=== PATIENT | female | born 1965 | race Caucasian/White ===

== ENCOUNTER 2017-11-03 21:18 | Observation (INO) | payer OTHER ==
[2017-11-03 21:39] LABS: ADD MAN DIFF? NO
[2017-11-03 21:42] LABS: BASO % 0 % (0-3); EOS % 1 % (0-3); HEMATOCRIT 52.3 % (36.0-47.0); HEMOGLOBIN 17.6 g/dL (12.0-15.5); LYMPH # 0.7 x10^3/uL (1.0-4.8); LYMPH % 13 % (24-48); MEAN CORPUSCULAR HEMOGLOBIN 34 pg (25-35); MEAN CORPUSCULAR HGB CONC 34 g/dL (31-37); MEAN CORPUSCULAR VOLUME 101 fL (79-100); MONO # 0.6 x10^3/uL (0.0-1.1); MONO % 10 % (0-9); NEUT # 4.3 x10^3uL (1.8-7.7); NEUT % 76 % (31-73); PLATELET COUNT 127 x10^3/uL (140-400); RED BLOOD COUNT 5.16 x10^6/uL (3.50-5.40); WHITE BLOOD COUNT 5.7 x10^3/uL (4.0-11.0)
[2017-11-03 21:54] LABS: ANION GAP 7 (6-14); BLOOD UREA NITROGEN 15 mg/dL (7-20); BUN/CREATININE RATIO 19 (6-20); CALCIUM 9.6 mg/dL (8.5-10.1); CARBON DIOXIDE 33 mmol/L (21-32); CHLORIDE 99 mmol/L (98-107); CREATININE 0.8 mg/dL (0.6-1.0); GLUCOSE 169 mg/dL (70-99); POTASSIUM 4.2 mmol/L (3.5-5.1); SODIUM 139 mmol/L (136-145)
[2017-11-03] MEDS: methylPREDNISolone SOD SUCC PF 125 MG/2 ML VIAL. IV (21:58)
[2017-11-03 21:59] LABS: ALBUMIN 3.8 g/dL (3.4-5.0); ALBUMIN/GLOBULIN RATIO 0.9 (1.0-1.7); ALK PHOS 107 U/L (46-116); ALT (SGPT) 51 U/L (14-59); AST (SGOT) 45 U/L (15-37); TOTAL BILIRUBIN 1.3 mg/dL (0.2-1.0); TOTAL PROTEIN 8.2 g/dL (6.4-8.2)
[2017-11-03] MEDS: IPRATRPIUM/ALBUTEROL 0.5/2.5MG 3 ML NEBU. NEB (22:01)
[2017-11-03 22:04] LABS: TROPONINI < 0.017 ng/mL (0.000-0.055)
[2017-11-03 22:05] LABS: NT-PRO BNP 120 pg/mL (0-124)
[2017-11-03] MEDS ORDERED: ACETAMINOPHEN 325 MG TABLET. PO (22:15)
[2017-11-03] MEDS ORDERED: ONDANSETRON PF 4 MG/2 ML VIAL. IV (22:15)
[2017-11-03] MEDS: FUROSEMIDE 40 MG/4 ML VIAL. IVP (22:35)
[2017-11-03 22:41] LABS: BASE EXCESS ABG 3 mmol/L (-3-3); HCO3 ABG 31 mmol/L (21-28); PO2 ABG 67 mmHg (75-108); SAT O2 ABG 93 % (92-99)
[2017-11-03 22:42] LABS: PCO2 ABG 56 mmHg (35-46); PH ABG 7.36 (7.35-7.45)
[2017-11-04] MEDS ORDERED: ALBUTEROL SULFATE 2.5 MG/3 ML NEBU. NEB ×2 (01:00→08:00)
[2017-11-04] MEDS: methylPREDNISolone SOD SUCC PF 125 MG/2 ML VIAL. IV ×3 (01:07→12:25)
[2017-11-04] MEDS: BUDESONIDE 0.5 MG/2 ML NEBU. NEB (07:42)
[2017-11-04] MEDS: IPRATRPIUM/ALBUTEROL 0.5/2.5MG 3 ML NEBU. NEB ×2 (07:42→11:28)
[2017-11-04 08:00] LABS: POC GLUCOSE 415 mg/dL (70-99)
[2017-11-04] MEDS: GLIMEPIRIDE 2 MG TABLET. PO (08:56)
[2017-11-04] MEDS: LOSARTAN POTASSIUM 50 MG TABLET. PO (08:56)
[2017-11-04] MEDS: hydroCHLOROthiazide 25 MG TABLET PO (08:56)
[2017-11-04] MEDS ORDERED: NON FORMULARY ITEM (Budesonide/Formoterol Fumarate (Symbicort 160-4.5 Mcg Inhaler) 2 PUFF) IH (09:00)
[2017-11-04] MEDS ORDERED: NON FORMULARY ITEM (Albuterol Sulfate (Ventolin Hfa Inhaler) 2 PUFF) INH (09:00)
[2017-11-04] MEDS ORDERED: DEXTROSE 50% 25 GM / 50ML DISP.SYRIN. IV (10:15)
[2017-11-04] MEDS: INSULIN LISPRO 300 UNITS/3 ML INSULN.PEN. SQ ×2 (10:24→12:36)
[2017-11-04 12:03] LABS: POC GLUCOSE 413 mg/dL (70-99)
== END 2017-11-04 12:45 | disposition home or self-care (01) ==
LOC: ER 21:18 → 5 NORTH 22:10
DX: J44.1 Chronic obstructive pulmonary disease with (acute) exacerbation (principal); E11.9 Type 2 diabetes mellitus without complications; I10 Essential (primary) hypertension; E03.9 Hypothyroidism, unspecified; F17.210 Nicotine dependence, cigarettes, uncomplicated; J96.11 Chronic respiratory failure with hypoxia; E66.01 Morbid (severe) obesity due to excess calories; F17.200 Nicotine dependence, unspecified, uncomplicated; Z82.5 Family history of asthma and other chronic lower respiratory diseases; Z83.3 Family history of diabetes mellitus; Z90.49 Acquired absence of other specified parts of digestive tract; Z99.81 Dependence on supplemental oxygen; Z93.3 Colostomy status
CPT/HCPCS: 36415; 36600; 71045; 80053; 82805; 82962; 83880; 84484; 85025; 93005; 94640; 96372; 96374; 96375; 96376; 99285-25; G0378; G0379; J1815; J1940; J2930; J7620; J7626

== ENCOUNTER 2019-06-01 22:54 | Inpatient (IN) | payer OTHER ==
[~2019-06-01] VITALS: Ht 165.1 cm; Wt 127.6 kg
[~2019-06-01 22:54] MED LIST: BUDE10.2 IH; CEFP100T PO; DAPA5TAB PO; GLIM2TAB3 PO; HYDR-2145 PO; HYDR-3164 PO; INSU100I11 SQ; INSU100I13 SQ; LEVO500T59 PO; LEVO50TA5 PO; LOSA-73 PO; Nicotine 21MG TD; PRED50TA PO; PROM25TA10 PO; TRAM50TA PO; VENTOLIN HFA18 GM INH
--- NOTE | 2019-06-01 23:18 | PHYS DOC ---
Past Medical History Past Medical History: COPD, Diabetes-Type II, Hypertension, Hypothyroid, Other Additional Past Medical Histor: cyst ruptured around colon, COLOSTOMY Past Surgical History: Appendectomy, Colectomy, , Other Additional Past Surgical Histo: fibroidectomy; hernia; colostomy Alcohol Use: None Drug Use: None Adult General Chief Complaint Chief Complaint: DYSPNEA/RESPIRATOY DISTRESS HPI HPI 53-year-old obese female presents to the emergency department via EMS with complaints of shortness of breath. Patient states her shortness of breath woke her from sleep, EMS upon arrival noted oxygen saturations 55% she was on 2 L nasal cannula at that time. Patient was provided with multiple treatments prior to her arrival. Upon arrival patient was taken off of BiPAP with oxygen saturations 85% on 6 L nasal cannula. She was subsequently placed back upon B iPAP and her sats are 95%. She does arouse to verbal stimuli is able to answer some questions. Patient describes chest pain. Further review is difficult given patient's medical condition Review of Systems Review of Systems Constitutional: Denies fever or chills [] Respiratory: + cough/SOB Cardiovascular: No additional information not addressed in HPI [] GI: Denies abdominal pain, nausea, vomiting, bloody stools or diarrhea [] Musculoskeletal: Denies back pain or joint pain [] Neurologic: Denies headache, focal weakness or sensory changes [] All other systems were reviewed and found to be within normal limits, except as documented in this note. Current Medications Current Medications Current Medications Medications (Trade) Dose Ordered Sig/Kris Start Time Stop Time Status Last Admin Dose Admin Methylprednisolone Sodium Succinate (SOLU-Medrol 125MG VIAL) 125 mg 1X ONCE 06/01/19 23:30 06/01/19 23:31 DC 06/01/19 23:49 125 MG Morphine Sulfate (Morphine Sulfate) 2 mg 1X ONCE 06/02/19 00:30 06/02/19 00:31 DC Allergies Allergies Allergies Coded Allergies Type Severity Reaction Last Updated Verified NSAIDS (Non-Steroidal Anti-Inflamma Allergy Intermediate 02/09/16 Yes aspirin Allergy Intermediate 02/09/16 Yes ibuprofen Allergy Intermediate 02/09/16 Yes egg Allergy Mild Nausea 02/09/16 Yes rice Allergy Mild Nausea and Vomiting 02/09/16 Yes levothyroxine sodium Adverse Reaction Mild HALLUCINATIONS 09/19/17 Yes Physical Exam Physical Exam Constitutional: Well developed, well nourished, resp distress, obese, Decreased LOC [] HENT: Normocephalic, atraumatic, bilateral external ears normal, oropharynx moist, no oral exudates, nose normal. [] Eyes: PERRLA, EOMI, conjunctiva normal, no discharge. [] Cardiovascular:Heart rate regular rhythm, no murmur [] Lungs & Thorax: decreased BS bilaterally Abdomen: Bowel sounds normal, soft, no tenderness, no masses, no pulsatile masses. [] Skin: Warm, dry, no erythema, no rash. [] Extremities: No tenderness, + edema. [] Neurologic: Alert and oriented X 3, no focal deficits noted. [] Psychologic: Affect normal, judgement normal, mood normal. [] Current Patient Data Vital Signs Vital Signs Date Time Temp Pulse Resp B/P (MAP) Pulse Ox O2 Delivery O2 Flow Rate FiO2 06/01/19 23:15 96 BiPAP/CPAP 06/01/19 22:55 97.6 88 36 177/88 (117) 97.6 Lab Values Laboratory Tests Test 06/01/19 23:09 06/01/19 23:19 06/01/19 23:36 06/01/19 23:38 O2 Saturation 95 % (92-99) Arterial Blood pH 7.27 (7.35-7.45) L Arterial Blood pCO2 at Patient Temp 76 mmHg (35-46) *H Arterial Blood pO2 at Patient Temp 80 mmHg (75-108) Arterial Blood HCO3 34 mmol/L (21-28) H Arterial Blood Base Excess 4 mmol/L (-3-3) H White Blood Count 4.7 x10^3/uL (4.0-11.0) Red Blood Count 4.99 x10^6/uL (3.50-5.40) Hemoglobin 16.9 g/dL (12.0-15.5) H Hematocrit 50.8 % (36.0-47.0) H Mean Corpuscular Volume 102 fL (79-100) H Mean Corpuscular Hemoglobin 34 pg (25-35) Mean Corpuscular Hemoglobin Concent 33 g/dL (31-37) Red Cell Distribution Width 15.4 % (11.5-14.5) H Platelet Count 113 x10^3/uL (140-400) L Neutrophils (%) (Auto) 73 % (31-73) Lymphocytes (%) (Auto) 10 % (24-48) L Monocytes (%) (Auto) 16 % (0-9) H Eosinophils (%) (Auto) 0 % (0-3) Basophils (%) (Auto) 1 % (0-3) Neutrophils # (Auto) 3.4 x10^3/uL (1.8-7.7) Lymphocytes # (Auto) 0.5 x10^3/uL (1.0-4.8) L Monocytes # (Auto) 0.8 x10^3/uL (0.0-1.1) Eosinophils # (Auto) 0.0 x10^3/uL (0.0-0.7) Basophils # (Auto) 0.0 x10^3/uL (0.0-0.2) D-Dimer (Eileen) 0.45 ug/mlFEU (0.00-0.50) Sodium Level 136 mmol/L (136-145) Potassium Level 4.5 mmol/L (3.5-5.1) Chloride Level 99 mmol/L (98-107) Carbon Dioxide Level 36 mmol/L (21-32) H Anion Gap 1 (6-14) L Blood Urea Nitrogen 20 mg/dL (7-20) Creatinine 0.9 mg/dL (0.6-1.0) Estimated GFR (Cockcroft-Gault) 65.0 BUN/Creatinine Ratio 22 (6-20) H Glucose Level 235 mg/dL (70-99) H Calcium Level 9.1 mg/dL (8.5-10.1) Total Bilirubin 0.8 mg/dL (0.2-1.0) Aspartate Amino Transferase (AST) 74 U/L (15-37) H Alanine Aminotransferase (ALT) 69 U/L (14-59) H Alkaline Phosphatase 200 U/L (46-116) H Troponin I Quantitative 0.025 ng/mL (0.000-0.055) DL-Bne-C-Type Natriuretic Peptide 1265 pg/mL (0-124) H Total Protein 8.1 g/dL (6.4-8.2) Albumin 3.6 g/dL (3.4-5.0) Albumin/Globulin Ratio 0.8 (1.0-1.7) L Urine Collection Type U cath Urine Color Milena Urine Clarity Clear Urine pH 5.5 Urine Specific [place] 1.025 Urine Protein >=300 mg/dL (NEG-TRACE) Urine Glucose (UA) Negative mg/dL (NEG) Urine Ketones (Stick) Negative mg/dL (NEG) Urine Blood Moderate (NEG) Urine Nitrite Negative (NEG) Urine Bilirubin Small (NEG) Urine Urobilinogen Dipstick 1.0 mg/dL (0.2 mg/dL) Urine Leukocyte Esterase Negative (NEG) Urine RBC 3-5 /HPF (0-2) Urine WBC 0 /HPF (0-4) Urine Squamous Epithelial Cells None /LPF Urine Amorphous Sediment Present /HPF Urine Bacteria 0 /HPF (0-FEW) Urine Hyaline Casts Moderate /HPF Urine Granular Casts Few /HPF Urine Mucus Mod /LPF Influenza Type A Antigen Negative (NEGATIVE) Influenza Type B Antigen Negative (NEGATIVE) Laboratory Tests 06/01/19 23:19 Laboratory Tests 06/01/19 23:19 EKG EKG [] Radiology/Procedures Radiology/Procedures [] Course & Med Decision Making Course & Med Decision Making Pertinent Labs and Imaging studies reviewed. (See chart for details) [] 53-year-old obese female presents to the emergency department via EMS with complaints of shortness of breath. Patient states her shortness of breath woke her from sleep, EMS upon arrival noted oxygen saturations 55% she was on 2 L nasal cannula at that time. Patient was provided with multiple treatments prior to her arrival. Upon arrival patient was taken off of BiPAP with oxygen saturations 85% on 6 L nasal cannula. She was subsequently placed back upon BiPAP and her sats are 95%. She does arouse to verbal stimuli is able to answer some questions. Patient describes chest pain. Further review is difficult given patient's medical condition Labs reviewed, ABG reveals pH 7.27, PCO2 76, PO2 80, bicarbonate 34 D-dimer within normal limits, troponin within normal limits, BNP 1265. Discussed admission with Dr. Almaguer Pulmonary consultation placed. Plan to continue BiPAP with transitioning to NC as able. Dragon Disclaimer Dragon Disclaimer This electronic medical record was generated, in whole or in part, using a voice recognition dictation system. Departure Departure Impression: Primary Impression: Acute hypercapnic respiratory failure Additional Impression: COPD exacerbation Disposition: ADMITTED INPATIENT Admitting Physician: Koduri, Vinaya Condition: IMPROVED Referrals: ALBA ALMAGUER MD (PCP) Critical Care Time Critical care time was 35 minutes exclusive of procedures. Problem Qualifiers SANYA GRADY MD Jun 01, 2019 23:17
[2019-06-01 23:21] LABS: BASE EXCESS ABG 4 mmol/L (-3-3); HCO3 ABG 34 mmol/L (21-28); PO2 ABG 80 mmHg (75-108); SAT O2 ABG 95 % (92-99)
[2019-06-01] MEDS ORDERED: methylPREDNISolone SOD SUCC PF 125 MG/2 ML VIAL. IV ONE (23:30)
[2019-06-01 23:38] LABS: PCO2 ABG 76 mmHg (35-46)
[2019-06-01 23:43] LABS: BASO % 1 % (0-3); EOS % 0 % (0-3); HEMATOCRIT 50.8 % (36.0-47.0); HEMOGLOBIN 16.9 g/dL (12.0-15.5); LYMPH # 0.5 x10^3/uL (1.0-4.8); LYMPH % 10 % (24-48); MEAN CORPUSCULAR HEMOGLOBIN 34 pg (25-35); MEAN CORPUSCULAR HGB CONC 33 g/dL (31-37); MEAN CORPUSCULAR VOLUME 102 fL (79-100); MONO # 0.8 x10^3/uL (0.0-1.1); MONO % 16 % (0-9); NEUT # 3.4 x10^3/uL (1.8-7.7); NEUT % 73 % (31-73); PLATELET COUNT 113 x10^3/uL (140-400); RED BLOOD COUNT 4.99 x10^6/uL (3.50-5.40); RED CELL DISTRIBUTION WIDTH 15.4 % (11.5-14.5); WHITE BLOOD COUNT 4.7 x10^3/uL (4.0-11.0)
[2019-06-01 23:44] LABS: BILIRUBIN,URINE SMALL (NEG); CLARITY,URINE CLEAR; COLOR,URINE AMBER; NITRITE,URINE NEGATIVE (NEG); PH,URINE 5.5; PROTEIN,URINE >=300 mg/dL (NEG-TRACE)
[2019-06-01 23:52] LABS: CALCIUM 9.1 mg/dL (8.5-10.1); CREATININE 0.9 mg/dL (0.6-1.0); POTASSIUM 4.5 mmol/L (3.5-5.1)
[2019-06-01 23:53] LABS: AMORPHOUS SEDIMENT,UR PRESENT /HPF; BACTERIA,URINE 0 /HPF (0-FEW); GRANULAR CASTS,URINE FEW /HPF; HYALINE CASTS, URINE MODERATE /HPF; WBC,URINE 0 /HPF (0-4)
[2019-06-01 23:57] LABS: ALBUMIN 3.6 g/dL (3.4-5.0); ALBUMIN/GLOBULIN RATIO 0.8 (1.0-1.7); TOTAL BILIRUBIN 0.8 mg/dL (0.2-1.0); TOTAL PROTEIN 8.1 g/dL (6.4-8.2)
[2019-06-02] VITALS (7 sets, daily range): BP systolic 105–174; BP diastolic 55–91
[2019-06-02 00:02] LABS: INFLUENZA A PATIENT NEGATIVE (NEGATIVE); INFLUENZA B PATIENT NEGATIVE (NEGATIVE)
[2019-06-02] MEDS ORDERED: MORPHINE SULFATE 2 MG/ML VIAL. IV ONE (00:30)
[2019-06-02] MEDS ORDERED: MORPHINE SULFATE 2 MG/ML VIAL. IV PRN (01:00)
[2019-06-02] MEDS ORDERED: FUROSEMIDE 40 MG/4 ML VIAL. IVP ONE (01:00)
[2019-06-02] MEDS ORDERED: ONDANSETRON PF 4 MG/2 ML VIAL. IV PRN (01:00)
[2019-06-02] MEDS ORDERED: PRED20TA PO (02:30)
[2019-06-02] MEDS ORDERED: FLUC200T4 PO (02:30)
[2019-06-02] MEDS ORDERED: ONDA8TAB9 PO (02:30)
[2019-06-02] MEDS ORDERED: ACYC400T PO (02:30)
[2019-06-02] MEDS ORDERED: TIZA4TAB2 PO (02:30)
[2019-06-02] MEDS ORDERED: GABA-585 PO (02:30)
[2019-06-02] MEDS ORDERED: HYDR-2759 PO (02:30)
[2019-06-02] MEDS ORDERED: PANT40TA6 PO (02:30)
[2019-06-02] MEDS ORDERED: GLIM2TAB3 PO (02:30)
--- NOTE | 2019-06-02 03:09 | RAD ---
EXAM: CHEST 1 VIEW History: Dyspnea COMPARISON: 11/07/2017 TECHNIQUE: Single portable radiograph of the chest FINDINGS: Mild cardiomegaly. Mild prominent bilateral interstitial markings likely congestive changes. Mild bibasilar lung airspace opacities likely atelectasis or infiltrates. IMPRESSION: Mild congestive changes. Mild bibasilar lung airspace opacities likely atelectasis or infiltrates. Electronically signed by: Leonides Rogers MD (06/02/2019 3:06 AM) [facility]
[2019-06-02] MEDS ORDERED: IPRATRPIUM/ALBUTEROL 0.5/2.5MG 3 ML NEBU. NEB ONE (04:45)
[2019-06-02] MEDS ORDERED: IPRATRPIUM/ALBUTEROL 0.5/2.5MG 3 ML NEBU. NEB SCH (08:00)
--- NOTE | 2019-06-02 08:09 | PDOC ---
Provider Note Provider Note [id number] acute resp fail copd w ae acute bronchitis ? chf bipap steroid abx DARIA PETER MD Jun 02, 2019 08:08
[2019-06-02] MEDS: PANTOPRAZOLE 40 MG TABLET.DR. PO SCH (08:15)
--- NOTE | 2019-06-02 08:30 | CONS ---
DATE OF CONSULTATION: 06/02/2019 I was asked to see this 53-year-old lady for acute on chronic respiratory failure, acute exacerbation of COPD. HISTORY OF PRESENT ILLNESS: She is on BiPAP, so it is difficult to obtain information. She continues to smoke. She has not felt well for the past few days. She was brought to the Emergency Room via EMS. She was found to be hypoxemic. She is on oxygen 2 liters per minute via nasal cannula. She has had increased cough, sputum production and wheezing. She has had lower extremity edema. She is currently on BiPAP. ALLERGIES: NSAIDS, ASPIRIN, IBUPROFEN, LEVOTHYROXINE AND SODIUM RICE. MEDICATIONS: She was given Solu-Medrol in the Emergency Room. She is on bronchodilator. PAST MEDICAL HISTORY: COPD, chronic respiratory failure, hypertension, diabetes mellitus, obesity, ? obstructive sleep apnea-hypopnea syndrome, when I ask her if she uses CPAP at home she says yes. SOCIAL HISTORY: She is a smoker, details are not known. FAMILY HISTORY: There is no history of lung disease. REVIEW OF SYSTEMS: As mentioned as above, other systems are otherwise negative. PHYSICAL EXAMINATION: GENERAL: This is a morbidly obese lady. VITAL SIGNS: Her O2 saturation on BiPAP is 96%, respiratory rate 24, heart rate 77, blood pressure 171/77 and temperature was 100.8 earlier this morning. HEENT: Normocephalic, atraumatic. Pupils are equal, round, reactive to light. She has BiPAP mask on. NECK: There is no lymphadenopathy or thyromegaly. CARDIOVASCULAR: Regular rate and rhythm. PMI is nondisplaced. CHEST: Inspection is normal. LUNGS: There is bilateral end-expiratory wheezing, bibasilar crackles, dullness at the bases. ABDOMEN: Obese. Bowel sounds are good. EXTREMITIES: There is edema. LYMPHATICS: There is no lymphadenopathy. NEUROLOGIC: She is alert. SKIN: Chronic changes. LABORATORY DATA: I reviewed the following lab data: Chest x-ray shows increased interstitial marking and prominent hilar shadows. WBC 4.7, hemoglobin 16.9 and platelets 113. ABG last night, pH 7.27, pCO2 76 and pO2 80. Influenza A and B negative. Sodium 136, potassium 4.5, chloride 99, CO2 36, BUN 20 and creatinine 0.9. Troponin 0.025. BNP 1265. IMPRESSION: 1. Acute on chronic respiratory failure secondary to acute exacerbation of chronic obstructive pulmonary disease, acute bronchitis, cannot rule out acute diastolic congestive heart failure versus others. 2. Abnormal chest x-ray. 3. Acute exacerbation of chronic obstructive pulmonary disease. 4. Acute bronchitis. 5. Morbid obesity, obstructive sleep apnea-hypopnea syndrome, obesity hypoventilation syndrome. 6. Hypertension. 7. Diabetes mellitus. PLAN AND RECOMMENDATIONS: 1. Titrate FiO2 to keep O2 saturation 91%. 2. Continue bronchodilator. 3. Continue BiPAP until respiratory status is more stable. BiPAP setting reviewed. 4. Agree with Lasix. 5. Agree with Levaquin. 6. Start Solu-Medrol 40 mg IV every 8 hours. 7. Start Lovenox for DVT prophylaxis, Protonix for stress ulcer prophylaxis. 8. Lower extremity venous Doppler. 9. I have advised her to stop smoking forever. 10. If she does not have a CPAP, she will require an outpatient sleep study. Thank you very much for allowing me to participate in care of this very nice lady. The findings and recommendations were discussed with the patient and RN. DARIA PETER M.D. : GILBERT/elena JOB#: [id number] / [id number]
--- NOTE | 2019-06-02 08:51 | RAD ---
Bilateral lower extremity venous ultrasound, : History: Lower extremity edema Sonographic evaluation including grayscale, color flow and spectral Doppler analysis of the deep veins of the lower extremities was performed. The femoral and popliteal veins demonstrate normal compressibility and normal responses to distal augmentation maneuvers. Color imaging of those vessels shows no evidence of intraluminal clot. The visualized deep veins in both calves are patent. IMPRESSION: There is no sonographic evidence of deep vein thrombosis in either lower extremity. Electronically signed by: Jaime Wellington MD (06/02/2019 8:47 AM) [facility]
[2019-06-02] MEDS ORDERED: ENOXAPARIN 40 MG/0.4 ML SYRINGE. SQ SCH ×2 (09:00→11:30)
[2019-06-02] MEDS: methylPREDNISolone SOD SUCC PF 40 MG/ML VIAL. IV SCH ×3 (09:15→22:25)
--- NOTE | 2019-06-02 10:11 | EKG ---
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
[2019-06-02] MEDS ORDERED: HYDROcodone/APAP 5/325MG 1 TAB TABLET PO PRN (11:30)
[2019-06-02] MEDS ORDERED: DEXTROSE 50% 25 GM / 50ML DISP.SYRIN. IV PRN (11:30)
[2019-06-02] MEDS ORDERED: ALBUTEROL SULFATE 2.5 MG/3 ML NEBU. NEB PRN (11:45)
[2019-06-02] MEDS ORDERED: ONDANSETRON ODT 4 MG TAB.RAPDIS. PO PRN (11:45)
[2019-06-02] MEDS: hydroCHLOROthiazide 25 MG TABLET PO SCH (12:00)
[2019-06-02] MEDS: GLIMEPIRIDE 2 MG TABLET. PO SCH ×2 (12:00→18:02)
[2019-06-02] MEDS ORDERED: INSULIN LISPRO 300 UNITS/3 ML VIAL. SQ SCH (12:00)
[2019-06-02] MEDS: ALBUTEROL SULFATE 2.5 MG/3 ML NEBU. NEB SCH ×3 (12:06→20:10)
[2019-06-02] MEDS: BUDESONIDE 0.5 MG/2 ML NEBU. NEB SCH ×2 (12:06→20:09)
--- NOTE | 2019-06-02 12:26 | PDOC ---
Provider Note Provider Note Pt seen .H&P dictated.#[id number]. ALBA LOMAS MD Jun 02, 2019 12:26
--- NOTE | 2019-06-02 12:44 | HP ---
ADMIT DATE: 06/02/2019 REASON FOR ADMISSION TO THE HOSPITAL: Acute hypercapnic respiratory failure. HISTORY OF PRESENT ILLNESS: The patient is a 53-year-old female patient known to me, has history of chronic COPD, diastolic heart failure, obstructive sleep apnea, morbid obesity, diabetes, noncompliant, she has been sick for the last 3 weeks, has not seen the doctor, coughing progressively worse, she came to the Emergency Room wheezing. She has CO2 retention with hypercapnic respiratory failure, was placed on BiPAP, was given oxygen, breathing treatments and Solu-Medrol, antibiotics, did not improve, was admitted to the hospital. Pulmonary was consulted. PAST MEDICAL HISTORY: She has a history of chronic COPD, diastolic heart failure, obstructive sleep apnea, morbid obesity, diabetes, hypothyroidism, anxiety, depression. PAST SURGICAL HISTORY: Ruptured diverticulosis, had a colostomy, appendectomy, , hernia surgery. ALLERGIES: NONSTEROIDALS, ASPIRIN, EGG, IBUPROFEN, LEVOTHYROXINE, SODIUM RICE. SHE SAYS SHE CANNOT TAKE FLU OR PNEUMONIA SHOTS, SO WAS NOT GETTING THOSE. PERSONAL HISTORY: Smokes 1 pack to 2 packs for last 30 years. Denies alcohol. Denies any street drugs. FAMILY HISTORY: Positive for diabetes and lung problems. REVIEW OF SYMPTOMS: Complains of cough, wheezing and significant other. States she has been confused lately. PHYSICAL EXAMINATION: GENERAL: The patient is obese, BMI of 47, not in poor hygiene and she is on BiPAP, sitting in the bed at this present time. Significant other is present in the room. HEENT: Head is atraumatic. Pupils equal. Oral cavity: No teeth. The patient has a short neck and central obesity. CARDIOVASCULAR: S1, S2. LUNGS: Bilateral wheezing. ABDOMEN: The patient had a surgery in the abdomen. Has a large hernia and the left lower abdomen has a colostomy bag. EXTERNAL GENITALIA: [place]. RECTAL: Deferred. EXTREMITIES: A 1+ edema, lower extremities, pulses thready. NEUROLOGIC: Moving all extremities. No focal deficits noted. The patient recognized my name, says Tripp. She does not remember she is in the hospital. She is in and out on the conversation. LABORATORY DATA: Shows a white count 4.7, hemoglobin 17, platelets 113. Electrolytes show sodium 136, potassium 4.5, chloride 99, bicarbonate 36, BUN 20, creatinine 0.9, glucose 235. LFTs: AST 74, ALT 69, alk phos 200. BNP 1265. Troponin 0.025. Albumin negative. Urine shows protein 300, leukocytes negative, 0 white cells. Influenza A and B was negative. Ultrasound of the lower extremities negative for DVT. Chest x-ray shows congestive heart failure changes, bibasilar airspace opacities. FINAL IMPRESSION: 1. Acute hypercapnic acute respiratory failure, requiring BiPAP. 2. CO2 retention with hypoxia. 3. Chronic obstructive pulmonary disease with acute exacerbation. 4. History of sleep apnea. 5. Morbid obesity. 6. Diabetes. 7. Hypertension. 8. Hyperlipidemia. 9. History of colostomy. 10. Smoking addiction. 11. ALLERGIES TO EGG, COULD NOT TAKE FLU AND PNEUMONIA SHOTS. PLAN: At this time, admit to hospital, was given IV Solu-Medrol 125, then 40. She was placed on BiPAP, IV antibiotics, Levaquin after sputum cultures and blood cultures and DuoNeb 4 times daily. DVT prevention and see how the patient's condition improves in the next 24-48 hours. Smoking counseling was done. ALBA LOMAS MD DR: LUIS MIGUEL/elena JOB#: [id number] / [id number]
[2019-06-02] MEDS: INSULIN LISPRO 300 UNITS/3 ML VIAL. SQ SCH ×2 (13:49→18:12)
[2019-06-02] MEDS: tiZANidine 4 MG TABLET. PO SCH ×2 (15:12→22:24)
[2019-06-02] MEDS: LOSARTAN POTASSIUM 50 MG TABLET. PO SCH (15:12)
[2019-06-02] MEDS: GABAPENTIN 100 MG CAPSULE. PO SCH ×2 (15:12→22:24)
[2019-06-02] MEDS: FLUCONAZOLE 100 MG TABLET. PO SCH (15:12)
[2019-06-02] MEDS ORDERED: NON FORMULARY ITEM (Budesonide/Formoterol Fumarate (Symbicort 160-4.5 Mcg Inhaler) 2 PUFF) IH SCH (21:00)
[2019-06-02] MEDS: LACTOBACILLUS RHAMNOSUS GG 1 CAPSULE. PO SCH (22:24)
[2019-06-02] MEDS: INSULIN GLARGINE SYRINGE. SQ SCH (22:40)
[2019-06-03 03:00] VITALS: BP 116/61
[2019-06-03] MEDS: methylPREDNISolone SOD SUCC PF 40 MG/ML VIAL. IV SCH ×2 (06:19→21:05)
[2019-06-03 07:00] VITALS: BP 116/56
[2019-06-03] MEDS: ALBUTEROL SULFATE 2.5 MG/3 ML NEBU. NEB SCH ×4 (07:37→20:48)
[2019-06-03] MEDS: BUDESONIDE 0.5 MG/2 ML NEBU. NEB SCH ×2 (07:37→20:48)
--- NOTE | 2019-06-03 07:47 | PDOC ---
PULMONARY PROGRESS NOTES Subjective on bipap, more alert, has cough, sob better Vitals Vital Signs Date Time Temp Pulse Resp B/P (MAP) Pulse Ox O2 Delivery O2 Flow Rate FiO2 06/03/19 07:38 96 BiPAP/CPAP 06/03/19 03:00 98.1 58 20 116/61 (79) 98.1 General: Alert, No acute distress Lungs: Crackles Cardiovascular: S1, S2 Abdomen: Soft, Non-tender, Other Extremities: Other (edema) Skin: Warm Labs Laboratory Tests Test 06/01/19 23:09 06/01/19 23:19 06/01/19 23:36 06/01/19 23:38 O2 Saturation 95 % (92-99) Arterial Blood pH 7.27 (7.35-7.45) Arterial Blood pCO2 at Patient Temp 76 mmHg (35-46) Arterial Blood pO2 at Patient Temp 80 mmHg (75-108) Arterial Blood HCO3 34 mmol/L (21-28) Arterial Blood Base Excess 4 mmol/L (-3-3) White Blood Count 4.7 x10^3/uL (4.0-11.0) Red Blood Count 4.99 x10^6/uL (3.50-5.40) Hemoglobin 16.9 g/dL (12.0-15.5) Hematocrit 50.8 % (36.0-47.0) Mean Corpuscular Volume 102 fL (79-100) Mean Corpuscular Hemoglobin 34 pg (25-35) Mean Corpuscular Hemoglobin Concent 33 g/dL (31-37) Red Cell Distribution Width 15.4 % (11.5-14.5) Platelet Count 113 x10^3/uL (140-400) Neutrophils (%) (Auto) 73 % (31-73) Lymphocytes (%) (Auto) 10 % (24-48) Monocytes (%) (Auto) 16 % (0-9) Eosinophils (%) (Auto) 0 % (0-3) Basophils (%) (Auto) 1 % (0-3) Neutrophils # (Auto) 3.4 x10^3/uL (1.8-7.7) Lymphocytes # (Auto) 0.5 x10^3/uL (1.0-4.8) Monocytes # (Auto) 0.8 x10^3/uL (0.0-1.1) Eosinophils # (Auto) 0.0 x10^3/uL (0.0-0.7) Basophils # (Auto) 0.0 x10^3/uL (0.0-0.2) D-Dimer (Eileen) 0.45 ug/mlFEU (0.00-0.50) Sodium Level 136 mmol/L (136-145) Potassium Level 4.5 mmol/L (3.5-5.1) Chloride Level 99 mmol/L (98-107) Carbon Dioxide Level 36 mmol/L (21-32) Anion Gap 1 (6-14) Blood Urea Nitrogen 20 mg/dL (7-20) Creatinine 0.9 mg/dL (0.6-1.0) Estimated GFR (Cockcroft-Gault) 65.0 BUN/Creatinine Ratio 22 (6-20) Glucose Level 235 mg/dL (70-99) Calcium Level 9.1 mg/dL (8.5-10.1) Total Bilirubin 0.8 mg/dL (0.2-1.0) Aspartate Amino Transf (AST/SGOT) 74 U/L (15-37) Alanine Aminotransferase (ALT/SGPT) 69 U/L (14-59) Alkaline Phosphatase 200 U/L (46-116) Troponin I Quantitative 0.025 ng/mL (0.000-0.055) XE-Fbw-M-Type Natriuretic Peptide 1265 pg/mL (0-124) Total Protein 8.1 g/dL (6.4-8.2) Albumin 3.6 g/dL (3.4-5.0) Albumin/Globulin Ratio 0.8 (1.0-1.7) Urine Collection Type U cath Urine Color Milena Urine Clarity Clear Urine pH 5.5 Urine Specific [place] 1.025 Urine Protein >=300 mg/dL (NEG-TRACE) Urine Glucose (UA) Negative mg/dL (NEG) Urine Ketones (Stick) Negative mg/dL (NEG) Urine Blood Moderate (NEG) Urine Nitrite Negative (NEG) Urine Bilirubin Small (NEG) Urine Urobilinogen Dipstick 1.0 mg/dL (0.2 mg/dL) Urine Leukocyte Esterase Negative (NEG) Urine RBC 3-5 /HPF (0-2) Urine WBC 0 /HPF (0-4) Urine Squamous Epithelial Cells None /LPF Urine Amorphous Sediment Present /HPF Urine Bacteria 0 /HPF (0-FEW) Urine Hyaline Casts Moderate /HPF Urine Granular Casts Few /HPF Urine Mucus Mod /LPF Influenza Type A Antigen Negative (NEGATIVE) Influenza Type B Antigen Negative (NEGATIVE) Test 06/02/19 12:38 06/02/19 16:39 06/02/19 20:56 Glucose (Fingerstick) 282 mg/dL (70-99) 291 mg/dL (70-99) 261 mg/dL (70-99) Laboratory Tests Test 06/02/19 12:38 06/02/19 16:39 06/02/19 20:56 Glucose (Fingerstick) 282 mg/dL (70-99) 291 mg/dL (70-99) 261 mg/dL (70-99) Medications Active Scripts Medications Dose Route/Sig Max Daily Dose Days Date Category Gabapentin (Gabapentin) 100 Mg Capsule 100 Mg PO TID 06/02/19 Reported Acyclovir 400 Mg Tablet 1 Tab PO BID 06/02/19 Reported Prednisone 20 Mg Tablet 1 Tab PO DAILY 06/02/19 Reported Hydrocodone-Acetamin 5-325 mg (Hydrocodone/Acetaminophen) 1 Each Tablet 1 Each PO PRN Q6HRS PRN 06/02/19 Reported Fluconazole 200 Mg Tablet 1 Tab PO DAILY 06/02/19 Reported Glimepiride 2 Mg Tablet 1 Tab PO DAILY 06/02/19 Reported Pantoprazole Sodium 40 Mg Tablet.dr 40 Mg PO DAILY 06/02/19 Reported Zofran (Ondansetron Hcl) 8 Mg Tablet 1 Tab PO Q8HRS PRN 06/02/19 Reported Tizanidine Hcl 4 Mg Tablet 1 Tab PO BID 06/02/19 Reported Humalog (Insulin Lispro) 100 Unit/1 Ml Insuln.pen 0 Units SQ TIDWMEALS 30 11/10/17 Rx Lantus Solostar (Insulin Glargine,Hum.rec.anlog) 100 Unit/1 Ml Insuln.pen 10 Units SQ QHS 30 11/10/17 Rx Levaquin (Levofloxacin) 500 Mg Tablet 500 Mg PO QHS 4 11/10/17 Rx Prednisone 50 Mg Tablet 1 Tab PO DAILY 7 11/10/17 Rx Losartan Potassium 50 Mg Tablet 50 Mg PO DAILY 12/30/15 Reported Hydrochlorothiazide Tablet (Hydrochlorothiazide) 25 Mg Tablet 25 Mg PO DAILY 12/30/15 Reported Farxiga (Dapagliflozin Propanediol) 5 Mg Tablet 5 Mg PO 12/30/15 Reported Ventolin Hfa Inhaler (Albuterol Sulfate) 18 Gm Hfa.aer.ad 2 Puff INH QID 02/17/15 Reported Symbicort 160-4.5 Mcg Inhaler (Budesonide/Formoterol Fumarate) 10.2 Gm Hfa.aer.ad 2 Puff IH BID 02/17/15 Reported Glimepiride 2 Mg Tablet 1 Tab PO BID 02/17/15 Reported Impression . IMPRESSION: 1. Acute on chronic respiratory failure secondary to acute exacerbation of chronic obstructive pulmonary disease, acute bronchitis, acute diastolic congestive heart failure 2. Abnormal chest x-ray. 3. Acute exacerbation of chronic obstructive pulmonary disease. 4. Acute bronchitis. 5. Morbid obesity, obstructive sleep apnea-hypopnea syndrome, obesity hypoventilation syndrome. 6. Hypertension. 7. Diabetes mellitus. Plan . PLAN AND RECOMMENDATIONS: 1. Titrate FiO2 to keep O2 saturation 90%. 2. Continue bronchodilator. 3. Continue BiPAP. BiPAP setting reviewed. will do abg, abg reviewed, improved, bipap prn during day, cont at night 4. cont Lasix. monitor k, cr 5. cont Levaquin. 6. change Solu-Medrol to 40 mg IV every 12 hours. 7. cont Lovenox for DVT prophylaxis, Protonix for stress ulcer prophylaxis. 8. Lower extremity venous Doppler, neg. 9. I have advised her to stop smoking forever. 10. I do recommend an outpatient sleep study. discussed w pt and rn and rt DARIA PETER MD Jun 03, 2019 07:47
[2019-06-03] MEDS: hydroCHLOROthiazide 25 MG TABLET PO SCH (08:27)
[2019-06-03] MEDS: LOSARTAN POTASSIUM 50 MG TABLET. PO SCH (08:28)
[2019-06-03] MEDS: GABAPENTIN 100 MG CAPSULE. PO SCH ×3 (08:28→21:05)
[2019-06-03] MEDS: tiZANidine 4 MG TABLET. PO SCH ×2 (08:28→21:05)
[2019-06-03] MEDS: LACTOBACILLUS RHAMNOSUS GG 1 CAPSULE. PO SCH ×2 (08:28→21:05)
[2019-06-03] MEDS: FLUCONAZOLE 100 MG TABLET. PO SCH (08:28)
[2019-06-03] MEDS: GLIMEPIRIDE 2 MG TABLET. PO SCH ×2 (08:28→17:31)
[2019-06-03] MEDS: PANTOPRAZOLE 40 MG TABLET.DR. PO SCH (08:28)
[2019-06-03] MEDS: ENOXAPARIN 40 MG/0.4 ML SYRINGE. SQ SCH ×2 (08:29→21:05)
[2019-06-03] MEDS: INSULIN LISPRO 300 UNITS/3 ML VIAL. SQ SCH ×3 (08:29→17:34)
[2019-06-03 08:46] LABS: BASE EXCESS ABG 9 mmol/L (-3-3); HCO3 ABG 39 mmol/L (21-28); PO2 ABG 68 mmHg (75-108); SAT O2 ABG 92 % (92-99)
[2019-06-03 08:51] LABS: FIO2 ABG 40; PCO2 ABG 81 mmHg (35-46)
[2019-06-03] MEDS ORDERED: PANTOPRAZOLE 40 MG TABLET.DR. PO SCH (09:00)
[2019-06-03 09:07] LABS: BASO % 0 % (0-3); EOS % 0 % (0-3); HEMATOCRIT 51.2 % (36.0-47.0); HEMOGLOBIN 16.8 g/dL (12.0-15.5); LYMPH # 0.5 x10^3/uL (1.0-4.8); LYMPH % 8 % (24-48); MEAN CORPUSCULAR HEMOGLOBIN 34 pg (25-35); MEAN CORPUSCULAR HGB CONC 33 g/dL (31-37); MEAN CORPUSCULAR VOLUME 102 fL (79-100); MONO # 0.4 x10^3/uL (0.0-1.1); MONO % 6 % (0-9); NEUT # 5.3 x10^3/uL (1.8-7.7); NEUT % 86 % (31-73); PLATELET COUNT 114 x10^3/uL (140-400); RED BLOOD COUNT 5.01 x10^6/uL (3.50-5.40); RED CELL DISTRIBUTION WIDTH 15.6 % (11.5-14.5); WHITE BLOOD COUNT 6.2 x10^3/uL (4.0-11.0)
[2019-06-03 09:34] LABS: ALBUMIN/GLOBULIN RATIO 0.7 (1.0-1.7); CALCIUM 8.8 mg/dL (8.5-10.1); CREATININE 1.2 mg/dL (0.6-1.0); GFR 46.6; TOTAL BILIRUBIN 0.6 mg/dL (0.2-1.0); TOTAL PROTEIN 7.4 g/dL (6.4-8.2)
[2019-06-03 09:35] LABS: POTASSIUM 4.8 mmol/L (3.5-5.1)
[2019-06-03 10:26] VITALS: BP 105/56
--- NOTE | 2019-06-03 12:16 | PDOC ---
PROGRESS NOTES Subjective Subjective less confused today Objective Objective Vital Signs Date Time Temp Pulse Resp B/P (MAP) Pulse Ox O2 Delivery O2 Flow Rate FiO2 06/03/19 11:26 89 Nasal Cannula 5.0 06/03/19 10:26 97.3 53 20 105/56 (72) 97.3 Intake and Output 06/03/19 07:00 Intake Total 470 ml Output Total 1225 ml Balance -755 ml Intake Oral 470 ml Output Urine Total 1225 ml Physical Exam Abdomen: Normal bowel sounds, Soft, Other (colostomy bag) Extremities: No clubbing General: Alert HEENT: Atraumatic Lungs: Other (wheezing ashley) MUSCULOSKELETAL: No deformity Neck: Supple Neuro: Normal speech Psych/Mental Status: Mental status NL Skin: No rashes COMMENT albert Diagnosis Problem List Problems Medical Problems: (1) Acute hypercapnic respiratory failure Status: Acute (2) COPD exacerbation Status: Acute FINAL IMPRESSION: 1. Acute hypercapnic acute respiratory failure, requiring BiPAP. 2. CO2 retention with hypoxia. 3. Chronic obstructive pulmonary disease with acute exacerbation. 4. History of sleep apnea. 5. Morbid obesity. 6. Diabetes. 7. Hypertension. 8. Hyperlipidemia. 9. History of colostomy. 10. Smoking addiction. 11. ALLERGIES TO EGG, COULD NOT TAKE FLU AND PNEUMONIA SHOTS. PLAN: iv antibiotics ic steroids off bipap on oxygen nasal canula. d/c albert. cxr ,echo in am At this time, admit to hospital, was given IV Solu-Medrol 125, then 40. She was placed on BiPAP, IV antibiotics, Levaquin after sputum cultures and blood cultures and DuoNeb 4 times daily. DVT prevention and see how the patient's condition improves in the next 24-48 hours. Smoking counseling was done. Assessment Assessment Problems Medical Problems: (1) Acute hypercapnic respiratory failure Status: Acute (2) COPD exacerbation Status: Acute Plan Plan of Care Problems Medical Problems: (1) Acute hypercapnic respiratory failure Status: Acute (2) COPD exacerbation Status: Acute Comment Review of Relevant I have reviewed the following items leonardo (where applicable) has been applied. Labs Laboratory Tests Test 06/02/19 12:38 06/02/19 16:39 06/02/19 20:56 06/03/19 07:37 Glucose (Fingerstick) 282 mg/dL (70-99) 291 mg/dL (70-99) 261 mg/dL (70-99) 226 mg/dL (70-99) Test 06/03/19 08:35 06/03/19 08:45 06/03/19 11:31 O2 Saturation 92 % (92-99) Arterial Blood pH 7.30 (7.35-7.45) Arterial Blood pCO2 at Patient Temp 81 mmHg (35-46) Arterial Blood pO2 at Patient Temp 68 mmHg (75-108) Arterial Blood HCO3 39 mmol/L (21-28) Arterial Blood Base Excess 9 mmol/L (-3-3) FiO2 40 White Blood Count 6.2 x10^3/uL (4.0-11.0) Red Blood Count 5.01 x10^6/uL (3.50-5.40) Hemoglobin 16.8 g/dL (12.0-15.5) Hematocrit 51.2 % (36.0-47.0) Mean Corpuscular Volume 102 fL (79-100) Mean Corpuscular Hemoglobin 34 pg (25-35) Mean Corpuscular Hemoglobin Concent 33 g/dL (31-37) Red Cell Distribution Width 15.6 % (11.5-14.5) Platelet Count 114 x10^3/uL (140-400) Neutrophils (%) (Auto) 86 % (31-73) Lymphocytes (%) (Auto) 8 % (24-48) Monocytes (%) (Auto) 6 % (0-9) Eosinophils (%) (Auto) 0 % (0-3) Basophils (%) (Auto) 0 % (0-3) Neutrophils # (Auto) 5.3 x10^3/uL (1.8-7.7) Lymphocytes # (Auto) 0.5 x10^3/uL (1.0-4.8) Monocytes # (Auto) 0.4 x10^3/uL (0.0-1.1) Eosinophils # (Auto) 0.0 x10^3/uL (0.0-0.7) Basophils # (Auto) 0.0 x10^3/uL (0.0-0.2) Sodium Level 139 mmol/L (136-145) Potassium Level 4.8 mmol/L (3.5-5.1) Chloride Level 98 mmol/L (98-107) Carbon Dioxide Level 37 mmol/L (21-32) Anion Gap 4 (6-14) Blood Urea Nitrogen 40 mg/dL (7-20) Creatinine 1.2 mg/dL (0.6-1.0) Estimated GFR (Cockcroft-Gault) 46.6 BUN/Creatinine Ratio 33 (6-20) Glucose Level 260 mg/dL (70-99) Calcium Level 8.8 mg/dL (8.5-10.1) Total Bilirubin 0.6 mg/dL (0.2-1.0) Aspartate Amino Transf (AST/SGOT) 68 U/L (15-37) Alanine Aminotransferase (ALT/SGPT) 66 U/L (14-59) Alkaline Phosphatase 163 U/L (46-116) Total Protein 7.4 g/dL (6.4-8.2) Albumin 3.0 g/dL (3.4-5.0) Albumin/Globulin Ratio 0.7 (1.0-1.7) Glucose (Fingerstick) 272 mg/dL (70-99) Medications Current Medications Enoxaparin Sodium (Lovenox 40mg Syringe) 40 mg Q12HR SQ Last administered on 06/03/19 08:29; Start 06/03/19 at 09:00 Gabapentin (Neurontin) 100 mg TID PO Last administered on 06/03/19 08:28; Start 06/02/19 at 14:00 Insulin Glargine (Lantus Syringe) 10 unit QHS SQ Last administered on 06/02/19at 22:40; Start 06/02/19 at 21:00 Lactobacillus Rhamnosus (Culturelle) 1 cap BID PO Last administered on 06/03/19 08:28; Start 06/02/19 at 21:00 Levofloxacin (Levaquin) 500 mg QHS PO ; Start 06/02/19 at 21:00; Stop 06/02/19 at 11:36; Status DC Levofloxacin/ Dextrose 100 ml @ 100 mls/hr Q24H IV Last administered on at 22:29; Start 06/02/19 at 21:00 Methylprednisolone Sodium Succinate (SOLU-Medrol 40MG VIAL) 40 mg Q12HR IV ; Start 06/03/19 at 21:00 Non-Formulary Medication (Budesonide/ Formoterol Fumarate (Symbicort 160-4.5 Mcg Inhaler)) 2 puff BID IH ; Start 06/02/19 at 21:00; Status UNV Pantoprazole Sodium (Protonix) 40 mg DAILY PO ; Start 06/03/19 at 09:00; Stop 06/02/19 at 11:36; Status DC Vitals/I & O Vital Sign - Last 24 Hours 06/02/19 06/02/19 06/02/19 06/02/19 13:17 14:15 15:12 16:12 Temp 97.4 97.4 Pulse 79 79 Resp 24 B/P (MAP) 130/67 (88) 130/67 Pulse Ox 96 O2 Delivery BiPAP/CPAP BiPAP/CPAP BiPAP/CPAP 06/02/19 06/02/19 06/02/19 06/02/19 17:54 19:35 20:00 20:11 Temp 98.0 98.0 Pulse 61 Resp 24 B/P (MAP) 113/59 (77) Pulse Ox 91 92 O2 Delivery BiPAP/CPAP BiPAP/CPAP Bi-pap BiPAP/CPAP 06/02/19 06/02/19 06/03/19 06/03/19 22:51 23:49 00:19 03:00 Temp 97.2 98.1 97.2 98.1 Pulse 57 58 Resp 23 20 B/P (MAP) 105/55 (72) 116/61 (79) Pulse Ox 93 94 97 O2 Delivery BiPAP/CPAP BiPAP/CPAP BiPAP/CPAP BiPAP/CPAP 06/03/19 06/03/19 06/03/19 06/03/19 07:00 07:38 08:20 08:28 Temp 97.3 97.3 Pulse 47 47 Resp 20 B/P (MAP) 116/56 (76) 116/56 Pulse Ox 92 96 O2 Delivery BiPAP/CPAP BiPAP/CPAP Bi-pap 06/03/19 06/03/19 10:26 11:26 Temp 97.3 97.3 Pulse 53 Resp 20 B/P (MAP) 105/56 (72) Pulse Ox 93 89 O2 Delivery BiPAP/CPAP Nasal Cannula O2 Flow Rate 5.0 Intake and Output 06/02/19 06/02/19 06/03/19 15:00 23:00 07:00 Intake Total 120 ml 350 ml Output Total 800 ml 425 ml Balance -680 ml -75 ml ALBA LOMAS MD Jun 03, 2019 12:16
[2019-06-03 14:12] VITALS: BP 109/55
[2019-06-03 19:35] VITALS: BP 127/60
[2019-06-03] MEDS: INSULIN GLARGINE SYRINGE. SQ SCH (21:15)
[2019-06-03 23:10] VITALS: BP 108/57
[2019-06-04 03:40] VITALS: BP 106/53
[2019-06-04 05:55] LABS: CALCIUM 8.6 mg/dL (8.5-10.1); CHOLESTEROL/HDL RATIO 4.9; CREATININE 0.9 mg/dL (0.6-1.0); POTASSIUM 4.5 mmol/L (3.5-5.1)
[2019-06-04 07:07] VITALS: BP 126/67
[2019-06-04] MEDS: ALBUTEROL SULFATE 2.5 MG/3 ML NEBU. NEB SCH ×4 (08:18→19:53)
[2019-06-04] MEDS: BUDESONIDE 0.5 MG/2 ML NEBU. NEB SCH ×2 (08:18→19:53)
[2019-06-04] MEDS: FLUCONAZOLE 100 MG TABLET. PO SCH (08:23)
[2019-06-04] MEDS: GABAPENTIN 100 MG CAPSULE. PO SCH ×3 (08:23→20:56)
[2019-06-04] MEDS: LACTOBACILLUS RHAMNOSUS GG 1 CAPSULE. PO SCH ×2 (08:23→20:56)
[2019-06-04] MEDS: tiZANidine 4 MG TABLET. PO SCH ×2 (08:23→20:56)
[2019-06-04] MEDS: PANTOPRAZOLE 40 MG TABLET.DR. PO SCH (08:23)
[2019-06-04] MEDS: GLIMEPIRIDE 2 MG TABLET. PO SCH ×2 (08:24→17:34)
[2019-06-04] MEDS: hydroCHLOROthiazide 25 MG TABLET PO SCH (08:24)
[2019-06-04] MEDS: LOSARTAN POTASSIUM 50 MG TABLET. PO SCH (08:24)
[2019-06-04] MEDS: methylPREDNISolone SOD SUCC PF 40 MG/ML VIAL. IV SCH ×2 (08:26→20:56)
[2019-06-04] MEDS: ENOXAPARIN 40 MG/0.4 ML SYRINGE. SQ SCH ×2 (08:30→20:55)
--- NOTE | 2019-06-04 08:33 | PDOC ---
PULMONARY PROGRESS NOTES Subjective STILL SOA CAN NOT TOLERATE THE BIPAP SEC TO SINUS H/A Vitals Vital Signs Date Time Temp Pulse Resp B/P (MAP) Pulse Ox O2 Delivery O2 Flow Rate FiO2 06/04/19 08:18 95 Nasal Cannula 6.0 06/04/19 07:07 98.2 55 22 126/67 (86) 98.2 ROS: No Nausea, No Chest Pain, No Abdominal Pain, No Increase Cough General: Alert, No acute distress Lungs: Crackles Cardiovascular: S1, S2 Abdomen: Soft, Non-tender, Other Extremities: Other (edema) Skin: Warm Labs Laboratory Tests Test 06/02/19 12:38 06/02/19 16:39 06/02/19 20:56 06/03/19 07:37 Glucose (Fingerstick) 282 mg/dL (70-99) 291 mg/dL (70-99) 261 mg/dL (70-99) 226 mg/dL (70-99) Test 06/03/19 08:35 06/03/19 08:45 06/03/19 11:31 06/03/19 17:00 O2 Saturation 92 % (92-99) Arterial Blood pH 7.30 (7.35-7.45) Arterial Blood pCO2 at Patient Temp 81 mmHg (35-46) Arterial Blood pO2 at Patient Temp 68 mmHg (75-108) Arterial Blood HCO3 39 mmol/L (21-28) Arterial Blood Base Excess 9 mmol/L (-3-3) FiO2 40 White Blood Count 6.2 x10^3/uL (4.0-11.0) Red Blood Count 5.01 x10^6/uL (3.50-5.40) Hemoglobin 16.8 g/dL (12.0-15.5) Hematocrit 51.2 % (36.0-47.0) Mean Corpuscular Volume 102 fL (79-100) Mean Corpuscular Hemoglobin 34 pg (25-35) Mean Corpuscular Hemoglobin Concent 33 g/dL (31-37) Red Cell Distribution Width 15.6 % (11.5-14.5) Platelet Count 114 x10^3/uL (140-400) Neutrophils (%) (Auto) 86 % (31-73) Lymphocytes (%) (Auto) 8 % (24-48) Monocytes (%) (Auto) 6 % (0-9) Eosinophils (%) (Auto) 0 % (0-3) Basophils (%) (Auto) 0 % (0-3) Neutrophils # (Auto) 5.3 x10^3/uL (1.8-7.7) Lymphocytes # (Auto) 0.5 x10^3/uL (1.0-4.8) Monocytes # (Auto) 0.4 x10^3/uL (0.0-1.1) Eosinophils # (Auto) 0.0 x10^3/uL (0.0-0.7) Basophils # (Auto) 0.0 x10^3/uL (0.0-0.2) Sodium Level 139 mmol/L (136-145) Potassium Level 4.8 mmol/L (3.5-5.1) Chloride Level 98 mmol/L (98-107) Carbon Dioxide Level 37 mmol/L (21-32) Anion Gap 4 (6-14) Blood Urea Nitrogen 40 mg/dL (7-20) Creatinine 1.2 mg/dL (0.6-1.0) Estimated GFR (Cockcroft-Gault) 46.6 BUN/Creatinine Ratio 33 (6-20) Glucose Level 260 mg/dL (70-99) Calcium Level 8.8 mg/dL (8.5-10.1) Total Bilirubin 0.6 mg/dL (0.2-1.0) Aspartate Amino Transf (AST/SGOT) 68 U/L (15-37) Alanine Aminotransferase (ALT/SGPT) 66 U/L (14-59) Alkaline Phosphatase 163 U/L (46-116) Total Protein 7.4 g/dL (6.4-8.2) Albumin 3.0 g/dL (3.4-5.0) Albumin/Globulin Ratio 0.7 (1.0-1.7) Glucose (Fingerstick) 272 mg/dL (70-99) 298 mg/dL (70-99) Test 06/03/19 20:46 06/04/19 04:10 06/04/19 07:10 Glucose (Fingerstick) 170 mg/dL (70-99) 159 mg/dL (70-99) Sodium Level 139 mmol/L (136-145) Potassium Level 4.5 mmol/L (3.5-5.1) Chloride Level 98 mmol/L (98-107) Carbon Dioxide Level 36 mmol/L (21-32) Anion Gap 5 (6-14) Blood Urea Nitrogen 41 mg/dL (7-20) Creatinine 0.9 mg/dL (0.6-1.0) Estimated GFR (Cockcroft-Gault) 65.0 Glucose Level 158 mg/dL (70-99) Calcium Level 8.6 mg/dL (8.5-10.1) Triglycerides Level 178 mg/dL (0-150) Cholesterol Level 180 mg/dL (0-200) LDL Cholesterol, Calculated 107 mg/dL (0-100) VLDL Cholesterol, Calculated 36 mg/dL (0-40) Non-HDL Cholesterol Calculated 143 mg/dL (0-129) HDL Cholesterol 37 mg/dL (40-60) Cholesterol/HDL Ratio 4.9 Thyroid Stimulating Hormone (TSH) 4.603 uIU/mL (0.358-3.74) Laboratory Tests Test 06/03/19 08:35 06/03/19 08:45 06/03/19 11:31 06/03/19 17:00 O2 Saturation 92 % (92-99) Arterial Blood pH 7.30 (7.35-7.45) Arterial Blood pCO2 at Patient Temp 81 mmHg (35-46) Arterial Blood pO2 at Patient Temp 68 mmHg (75-108) Arterial Blood HCO3 39 mmol/L (21-28) Arterial Blood Base Excess 9 mmol/L (-3-3) FiO2 40 White Blood Count 6.2 x10^3/uL (4.0-11.0) Red Blood Count 5.01 x10^6/uL (3.50-5.40) Hemoglobin 16.8 g/dL (12.0-15.5) Hematocrit 51.2 % (36.0-47.0) Mean Corpuscular Volume 102 fL (79-100) Mean Corpuscular Hemoglobin 34 pg (25-35) Mean Corpuscular Hemoglobin Concent 33 g/dL (31-37) Red Cell Distribution Width 15.6 % (11.5-14.5) Platelet Count 114 x10^3/uL (140-400) Neutrophils (%) (Auto) 86 % (31-73) Lymphocytes (%) (Auto) 8 % (24-48) Monocytes (%) (Auto) 6 % (0-9) Eosinophils (%) (Auto) 0 % (0-3) Basophils (%) (Auto) 0 % (0-3) Neutrophils # (Auto) 5.3 x10^3/uL (1.8-7.7) Lymphocytes # (Auto) 0.5 x10^3/uL (1.0-4.8) Monocytes # (Auto) 0.4 x10^3/uL (0.0-1.1) Eosinophils # (Auto) 0.0 x10^3/uL (0.0-0.7) Basophils # (Auto) 0.0 x10^3/uL (0.0-0.2) Sodium Level 139 mmol/L (136-145) Potassium Level 4.8 mmol/L (3.5-5.1) Chloride Level 98 mmol/L (98-107) Carbon Dioxide Level 37 mmol/L (21-32) Anion Gap 4 (6-14) Blood Urea Nitrogen 40 mg/dL (7-20) Creatinine 1.2 mg/dL (0.6-1.0) Estimated GFR (Cockcroft-Gault) 46.6 BUN/Creatinine Ratio 33 (6-20) Glucose Level 260 mg/dL (70-99) Calcium Level 8.8 mg/dL (8.5-10.1) Total Bilirubin 0.6 mg/dL (0.2-1.0) Aspartate Amino Transf (AST/SGOT) 68 U/L (15-37) Alanine Aminotransferase (ALT/SGPT) 66 U/L (14-59) Alkaline Phosphatase 163 U/L (46-116) Total Protein 7.4 g/dL (6.4-8.2) Albumin 3.0 g/dL (3.4-5.0) Albumin/Globulin Ratio 0.7 (1.0-1.7) Glucose (Fingerstick) 272 mg/dL (70-99) 298 mg/dL (70-99) Test 06/03/19 20:46 06/04/19 04:10 06/04/19 07:10 Glucose (Fingerstick) 170 mg/dL (70-99) 159 mg/dL (70-99) Sodium Level 139 mmol/L (136-145) Potassium Level 4.5 mmol/L (3.5-5.1) Chloride Level 98 mmol/L (98-107) Carbon Dioxide Level 36 mmol/L (21-32) Anion Gap 5 (6-14) Blood Urea Nitrogen 41 mg/dL (7-20) Creatinine 0.9 mg/dL (0.6-1.0) Estimated GFR (Cockcroft-Gault) 65.0 Glucose Level 158 mg/dL (70-99) Calcium Level 8.6 mg/dL (8.5-10.1) Triglycerides Level 178 mg/dL (0-150) Cholesterol Level 180 mg/dL (0-200) LDL Cholesterol, Calculated 107 mg/dL (0-100) VLDL Cholesterol, Calculated 36 mg/dL (0-40) Non-HDL Cholesterol Calculated 143 mg/dL (0-129) HDL Cholesterol 37 mg/dL (40-60) Cholesterol/HDL Ratio 4.9 Thyroid Stimulating Hormone (TSH) 4.603 uIU/mL (0.358-3.74) Medications Active Scripts Medications Dose Route/Sig Max Daily Dose Days Date Category Gabapentin (Gabapentin) 100 Mg Capsule 100 Mg PO TID 06/02/19 Reported Acyclovir 400 Mg Tablet 1 Tab PO BID 06/02/19 Reported Prednisone 20 Mg Tablet 1 Tab PO DAILY 06/02/19 Reported Hydrocodone-Acetamin 5-325 mg (Hydrocodone/Acetaminophen) 1 Each Tablet 1 Each PO PRN Q6HRS PRN 06/02/19 Reported Fluconazole 200 Mg Tablet 1 Tab PO DAILY 06/02/19 Reported Glimepiride 2 Mg Tablet 1 Tab PO DAILY 06/02/19 Reported Pantoprazole Sodium 40 Mg Tablet.dr 40 Mg PO DAILY 06/02/19 Reported Zofran (Ondansetron Hcl) 8 Mg Tablet 1 Tab PO Q8HRS PRN 06/02/19 Reported Tizanidine Hcl 4 Mg Tablet 1 Tab PO BID 06/02/19 Reported Humalog (Insulin Lispro) 100 Unit/1 Ml Insuln.pen 0 Units SQ TIDWMEALS 30 11/10/17 Rx Lantus Solostar (Insulin Glargine,Hum.rec.anlog) 100 Unit/1 Ml Insuln.pen 10 Units SQ QHS 30 11/10/17 Rx Levaquin (Levofloxacin) 500 Mg Tablet 500 Mg PO QHS 4 11/10/17 Rx Prednisone 50 Mg Tablet 1 Tab PO DAILY 7 11/10/17 Rx Losartan Potassium 50 Mg Tablet 50 Mg PO DAILY 12/30/15 Reported Hydrochlorothiazide Tablet (Hydrochlorothiazide) 25 Mg Tablet 25 Mg PO DAILY 12/30/15 Reported Farxiga (Dapagliflozin Propanediol) 5 Mg Tablet 5 Mg PO 12/30/15 Reported Ventolin Hfa Inhaler (Albuterol Sulfate) 18 Gm Hfa.aer.ad 2 Puff INH QID 02/17/15 Reported Symbicort 160-4.5 Mcg Inhaler (Budesonide/Formoterol Fumarate) 10.2 Gm Hfa.aer.ad 2 Puff IH BID 02/17/15 Reported Glimepiride 2 Mg Tablet 1 Tab PO BID 02/17/15 Reported Impression . IMPRESSION: 1. Acute on chronic respiratory failure secondary to acute exacerbation of chronic obstructive pulmonary disease, acute bronchitis, acute diastolic congestive heart failure 2. Abnormal chest x-ray. 3. Acute exacerbation of chronic obstructive pulmonary disease. 4. Acute bronchitis. 5. Morbid obesity, obstructive sleep apnea-hypopnea syndrome, obesity hypoventilation syndrome. 6. Hypertension. 7. Diabetes mellitus. Plan . PT WANTS SPIRIVA UPON D/C WILL NEED A SLEEP STUDY 02 D/C SMOKING ERYN YANES MD Jun 04, 2019 08:33
[2019-06-04] MEDS: INSULIN LISPRO 300 UNITS/3 ML VIAL. SQ SCH ×3 (08:34→17:38)
--- NOTE | 2019-06-04 09:21 | PDOC ---
PROGRESS NOTES Subjective Subjective feels better today Objective Objective Vital Signs Date Time Temp Pulse Resp B/P (MAP) Pulse Ox O2 Delivery O2 Flow Rate FiO2 06/04/19 08:24 55 126/67 06/04/19 08:18 95 Nasal Cannula 6.0 06/04/19 07:07 98.2 22 98.2 Intake and Output 06/04/19 07:00 Intake Total 1140 ml Balance 1140 ml Intake Oral 1140 ml # Voids 3 Physical Exam Abdomen: Normal bowel sounds, Soft, Other (colostomy bag) Extremities: No clubbing General: Alert HEENT: Atraumatic Lungs: Other (wheezing ashley) MUSCULOSKELETAL: No deformity Neck: Supple Neuro: Normal speech Psych/Mental Status: Mental status NL Skin: No rashes COMMENT albert Diagnosis Problem List Problems Medical Problems: (1) Acute hypercapnic respiratory failure Status: Acute (2) COPD exacerbation Status: Acute Assessment Assessment Problems Medical Problems: (1) Acute hypercapnic respiratory failure Status: Acute (2) COPD exacerbation Status: Acute FINAL IMPRESSION: 1. Acute hypercapnic acute respiratory failure, requiring BiPAP. 2. CO2 retention with hypoxia. 3. Chronic obstructive pulmonary disease with acute exacerbation. 4. History of sleep apnea. 5. Morbid obesity. 6. Diabetes. 7. Hypertension. 8. Hyperlipidemia. 9. History of colostomy. 10. Smoking addiction. 11. ALLERGIES TO EGG, COULD NOT TAKE FLU AND PNEUMONIA SHOTS. PLAN: ECHO, cxr today iv antibiotics ic steroids off bipap on oxygen nasal canula. d/c price. Home in 1-2 days Plan Plan of Care Problems Medical Problems: (1) Acute hypercapnic respiratory failure Status: Acute (2) COPD exacerbation Status: Acute Comment Review of Relevant I have reviewed the following items leonardo (where applicable) has been applied. Labs Laboratory Tests Test 06/03/19 11:31 06/03/19 17:00 06/03/19 20:46 06/04/19 04:10 Glucose (Fingerstick) 272 mg/dL (70-99) 298 mg/dL (70-99) 170 mg/dL (70-99) Sodium Level 139 mmol/L (136-145) Potassium Level 4.5 mmol/L (3.5-5.1) Chloride Level 98 mmol/L (98-107) Carbon Dioxide Level 36 mmol/L (21-32) Anion Gap 5 (6-14) Blood Urea Nitrogen 41 mg/dL (7-20) Creatinine 0.9 mg/dL (0.6-1.0) Estimated GFR (Cockcroft-Gault) 65.0 Glucose Level 158 mg/dL (70-99) Calcium Level 8.6 mg/dL (8.5-10.1) Triglycerides Level 178 mg/dL (0-150) Cholesterol Level 180 mg/dL (0-200) LDL Cholesterol, Calculated 107 mg/dL (0-100) VLDL Cholesterol, Calculated 36 mg/dL (0-40) Non-HDL Cholesterol Calculated 143 mg/dL (0-129) HDL Cholesterol 37 mg/dL (40-60) Cholesterol/HDL Ratio 4.9 Thyroid Stimulating Hormone (TSH) 4.603 uIU/mL (0.358-3.74) Test 06/04/19 07:10 Glucose (Fingerstick) 159 mg/dL (70-99) Medications Current Medications Methylprednisolone Sodium Succinate (SOLU-Medrol 40MG VIAL) 40 mg Q12HR IV Last administered on 06/04/19at 08:26; Start 06/03/19 at 21:00 Vitals/I & O Vital Sign - Last 24 Hours 06/03/19 06/03/19 06/03/19 06/03/19 10:26 11:26 14:12 16:03 Temp 97.3 97.5 97.3 97.5 Pulse 53 52 Resp 20 20 B/P (MAP) 105/56 (72) 109/55 (73) Pulse Ox 93 89 93 93 O2 Delivery BiPAP/CPAP Nasal Cannula BiPAP/CPAP Nasal Cannula O2 Flow Rate 5.0 5.0 06/03/19 06/03/19 06/03/19 06/03/19 19:35 20:00 20:50 20:51 Temp 98.1 98.1 Pulse 61 Resp 22 B/P (MAP) 127/60 (82) Pulse Ox 89 95 95 O2 Delivery Nasal Cannula Bi-pap Nasal Cannula Nasal Cannula O2 Flow Rate 6.0 6.0 6.0 6.0 06/03/19 06/03/19 06/04/19 06/04/19 21:45 23:10 00:16 02:14 Temp 97.4 97.4 Pulse 60 Resp 22 B/P (MAP) 108/57 (74) Pulse Ox 93 94 96 94 O2 Delivery BiPAP/CPAP BiPAP/CPAP BiPAP/CPAP BiPAP/CPAP 06/04/19 06/04/19 06/04/19 06/04/19 03:40 04:34 07:07 08:18 Temp 97.1 98.2 97.1 98.2 Pulse 46 55 Resp 22 22 B/P (MAP) 106/53 (70) 126/67 (86) Pulse Ox 92 94 90 95 O2 Delivery BiPAP/CPAP BiPAP/CPAP Nasal Cannula Nasal Cannula O2 Flow Rate 6.0 6.0 06/04/19 08:24 Pulse 55 B/P (MAP) 126/67 Intake and Output 06/03/19 06/03/19 06/04/19 15:00 23:00 07:00 Intake Total 240 ml 800 ml 100 ml Balance 240 ml 800 ml 100 ml ALBA LOMAS MD Jun 04, 2019 09:21
[2019-06-04 10:18] VITALS: BP 100/55
--- NOTE | 2019-06-04 10:22 | CARD ---
MR#: [id number] Date of Study: 06/04/2019 Ordering Physician: ALBA LOMAS, Referring Physician: ALBA LOMAS, Tech: Millicent Pineda APPROVED REPORT EXAM: Two-dimensional and M-mode echocardiogram with Doppler and color Doppler. Other Information Quality : AverageHR: 523bpm INDICATION COPD Dyspnea LV Function:Systolic Congestive Heart Failure RISK FACTORS Hypertension Diabetes 2D DIMENSIONS RVDd3.7 (2.9-3.5cm)Left Atrium(2D)4.2 (1.6-4.0cm) IVSd1.3 (0.7-1.1cm)Aortic Root(2D)3.0 (2.0-3.7cm) LVDd4.8 (3.9-5.9cm)LVOT Diameter2.3 (1.8-2.4cm) PWd1.4 (0.7-1.1cm)LVDs3.4 (2.5-4.0cm) FS (%) 28.9 %SV59.0 ml LVEF(%)55.5 (>50%) Aortic Valve AoV Peak Jerrod.172.3cm/sAoV VTI36.7cm AO Peak GR.11.9mmHgLVOT Peak Jerrod.130.3cm/s LVOT VTI 28.33cmAO Mean GR.7mmHg VASQUEZ (VMAX)2.36cc2FKJ (VTI)3.12cm2 Mitral Valve MV E Ugouscqu586.8cm/sMV DECEL BWVX562xo MV A Kawmxvvi09.8cm/sMV YEG73ay E/A Ratio1.5MVA (PHT)3.21cm2 TDI E/Lateral E'16.4E/Medial E'20.1 Pulmonary Valve PV Peak Jnrhwjoa355.2cm/sPV Peak Grad.4mmHg Tricuspid Valve TR P. Cqtkwyda851ix/sRAP AIFFPNAX3sdFq TR Peak Gr.46hkOaLJOE69vzQu Pulmonary Vein S1 Ksaoyjwy07.2cm/sD2 Ywntvydc52.2cm/s LEFT VENTRICLE The left ventricle is normal size. There is mild concentric left ventricular hypertrophy. The left ve ntricular systolic function is normal and the ejection fraction is within normal range. The Ejection Fraction is 50-55%. There is normal LV segmental wall motion. Transmitral Doppler flow pattern is Gra de I-abnormal relaxation pattern. RIGHT VENTRICLE The right ventricle is borderline dilated. There is normal right ventricular wall thickness. The righ t ventricular systolic function is normal. ATRIA The left atrium is borderline dilated. The right atrium is mildly dilated. The interatrial septum is intact with no evidence for an atrial septal defect or patent foramen ovale as noted on 2-D or Dopple r imaging. AORTIC VALVE The aortic valve is moderately thickened. Doppler and Color Flow revealed no significant aortic regur gitation. There is trace valvular aortic stenosis. MITRAL VALVE The mitral valve is normal in structure and function. There is no evidence of mitral valve prolapse. There is no mitral valve stenosis. Doppler and Color-flow revealed trace mitral regurgitation. TRICUSPID VALVE The tricuspid valve is normal in structure and function. Doppler and Color Flow revealed trace tricus pid regurgitation wiith an estimated PAP of 28 mmHg. There is no tricuspid valve stenosis. PULMONIC VALVE The pulmonic valve is not well visualized. Doppler and Color Flow revealed no pulmonic valvular regur gitation. GREAT VESSELS The aortic root is normal in size. The IVC was not visualized. PERICARDIAL EFFUSION There is no evidence of significant pericardial effusion. Critical Notification Critical Value: No <Conclusion> The left ventricle is normal size. The left ventricular systolic function is normal and the ejection fraction is within normal range. The Ejection Fraction is 50-55%. There is mild concentric left ventricular hypertrophy. The aortic valve is moderately thickened. Doppler and Color Flow revealed no significant aortic regurgitation. There is trace valvular aortic stenosis. Doppler and Color-flow revealed trace mitral regurgitation. Doppler and Color Flow revealed trace tricuspid regurgitation wiith an estimated PAP of 28 mmHg. Signed by : Shaheen Hitchcock MD Electronically Approved : 06/04/2019 10:21:25
--- NOTE | 2019-06-04 11:16 | RAD ---
CHEST PA LATERAL Clinical indications: CHF/pneumonia. Comparison June 01, 2019. Findings: Bilateral interstitial lung infiltrates or pulmonary edema are again evident. There is an increase in bibasilar lung infiltrates or pulmonary edema from the prior study. No pneumothorax or pleural effusion is seen. The heart size is mildly prominent but stable. Cephalization of pulmonary flow is unchanged. The osseous structures appear intact. Impression: Increase in bibasilar lung infiltrates or pulmonary edema. Electronically signed by: Lit Correa MD (06/04/2019 11:14 AM) [facility] [place]
--- NOTE | 2019-06-04 12:55 | NUR ---
SS following for discharge planning. SS reviewed pt chart. Pt is self pay pt. HCFS following for self pay status. Pt is from home and is currently requiring oxygen. SS will continue to follow for discharge planning.
[2019-06-04 14:50] VITALS: BP 137/63
[2019-06-04 19:15] VITALS: BP 156/76
[2019-06-04] MEDS: INSULIN GLARGINE SYRINGE. SQ SCH (21:04)
[2019-06-04 23:00] VITALS: BP 162/79
[2019-06-05 00:07] LABS: HEMOGLOBIN A1C 8.9 % (4.8-5.6)
[2019-06-05 03:40] VITALS: BP 148/87
[2019-06-05 07:00] VITALS: BP 158/81
[2019-06-05] MEDS: BUDESONIDE 0.5 MG/2 ML NEBU. NEB SCH (07:49)
[2019-06-05] MEDS: ALBUTEROL SULFATE 2.5 MG/3 ML NEBU. NEB SCH (07:49)
[2019-06-05] MEDS: FLUCONAZOLE 100 MG TABLET. PO SCH (08:43)
[2019-06-05] MEDS: GLIMEPIRIDE 2 MG TABLET. PO SCH (08:43)
[2019-06-05] MEDS: PANTOPRAZOLE 40 MG TABLET.DR. PO SCH (08:43)
[2019-06-05] MEDS: ENOXAPARIN 40 MG/0.4 ML SYRINGE. SQ SCH (08:44)
[2019-06-05] MEDS: GABAPENTIN 100 MG CAPSULE. PO SCH (08:44)
[2019-06-05] MEDS: LOSARTAN POTASSIUM 50 MG TABLET. PO SCH (08:45)
[2019-06-05] MEDS: LACTOBACILLUS RHAMNOSUS GG 1 CAPSULE. PO SCH (08:45)
[2019-06-05] MEDS: tiZANidine 4 MG TABLET. PO SCH (08:45)
[2019-06-05] MEDS: hydroCHLOROthiazide 25 MG TABLET PO SCH (08:45)
[2019-06-05] MEDS: methylPREDNISolone SOD SUCC PF 40 MG/ML VIAL. IV SCH (08:45)
--- NOTE | 2019-06-05 08:49 | PDOC ---
PULMONARY PROGRESS NOTES Subjective STILL SOA CAN NOT TOLERATE THE BIPAP SEC TO SINUS H/A Vitals Vital Signs Date Time Temp Pulse Resp B/P (MAP) Pulse Ox O2 Delivery O2 Flow Rate FiO2 06/05/19 07:50 95 Nasal Cannula 6.0 06/05/19 07:00 97.8 60 16 158/81 (106) 97.8 ROS: No Nausea, No Chest Pain, No Abdominal Pain, No Increase Cough General: Alert, No acute distress Lungs: Crackles Cardiovascular: S1, S2 Abdomen: Soft, Non-tender, Other Extremities: Other (edema) Skin: Warm Labs Laboratory Tests Test 06/03/19 11:31 06/03/19 17:00 06/03/19 20:46 06/04/19 04:10 Glucose (Fingerstick) 272 mg/dL (70-99) 298 mg/dL (70-99) 170 mg/dL (70-99) Sodium Level 139 mmol/L (136-145) Potassium Level 4.5 mmol/L (3.5-5.1) Chloride Level 98 mmol/L (98-107) Carbon Dioxide Level 36 mmol/L (21-32) Anion Gap 5 (6-14) Blood Urea Nitrogen 41 mg/dL (7-20) Creatinine 0.9 mg/dL (0.6-1.0) Estimated GFR (Cockcroft-Gault) 65.0 Glucose Level 158 mg/dL (70-99) Hemoglobin A1c 8.9 % (4.8-5.6) Calcium Level 8.6 mg/dL (8.5-10.1) Triglycerides Level 178 mg/dL (0-150) Cholesterol Level 180 mg/dL (0-200) LDL Cholesterol, Calculated 107 mg/dL (0-100) VLDL Cholesterol, Calculated 36 mg/dL (0-40) Non-HDL Cholesterol Calculated 143 mg/dL (0-129) HDL Cholesterol 37 mg/dL (40-60) Cholesterol/HDL Ratio 4.9 Thyroid Stimulating Hormone (TSH) 4.603 uIU/mL (0.358-3.74) Test 06/04/19 07:10 06/04/19 11:15 06/04/19 16:37 06/04/19 20:54 Glucose (Fingerstick) 159 mg/dL (70-99) 201 mg/dL (70-99) 217 mg/dL (70-99) 257 mg/dL (70-99) Test 06/05/19 07:40 Glucose (Fingerstick) 207 mg/dL (70-99) Laboratory Tests Test 06/04/19 11:15 06/04/19 16:37 06/04/19 20:54 06/05/19 07:40 Glucose (Fingerstick) 201 mg/dL (70-99) 217 mg/dL (70-99) 257 mg/dL (70-99) 207 mg/dL (70-99) Medications Active Scripts Medications Dose Route/Sig Max Daily Dose Days Date Category Gabapentin (Gabapentin) 100 Mg Capsule 100 Mg PO TID 06/02/19 Reported Acyclovir 400 Mg Tablet 1 Tab PO BID 06/02/19 Reported Prednisone 20 Mg Tablet 1 Tab PO DAILY 06/02/19 Reported Hydrocodone-Acetamin 5-325 mg (Hydrocodone/Acetaminophen) 1 Each Tablet 1 Each PO PRN Q6HRS PRN 06/02/19 Reported Fluconazole 200 Mg Tablet 1 Tab PO DAILY 06/02/19 Reported Glimepiride 2 Mg Tablet 1 Tab PO DAILY 06/02/19 Reported Pantoprazole Sodium 40 Mg Tablet.dr 40 Mg PO DAILY 06/02/19 Reported Zofran (Ondansetron Hcl) 8 Mg Tablet 1 Tab PO Q8HRS PRN 06/02/19 Reported Tizanidine Hcl 4 Mg Tablet 1 Tab PO BID 06/02/19 Reported Humalog (Insulin Lispro) 100 Unit/1 Ml Insuln.pen 0 Units SQ TIDWMEALS 30 11/10/17 Rx Lantus Solostar (Insulin Glargine,Hum.rec.anlog) 100 Unit/1 Ml Insuln.pen 10 Units SQ QHS 30 11/10/17 Rx Levaquin (Levofloxacin) 500 Mg Tablet 500 Mg PO QHS 4 11/10/17 Rx Prednisone 50 Mg Tablet 1 Tab PO DAILY 7 11/10/17 Rx Losartan Potassium 50 Mg Tablet 50 Mg PO DAILY 12/30/15 Reported Hydrochlorothiazide Tablet (Hydrochlorothiazide) 25 Mg Tablet 25 Mg PO DAILY 12/30/15 Reported Farxiga (Dapagliflozin Propanediol) 5 Mg Tablet 5 Mg PO 12/30/15 Reported Ventolin Hfa Inhaler (Albuterol Sulfate) 18 Gm Hfa.aer.ad 2 Puff INH QID 02/17/15 Reported Symbicort 160-4.5 Mcg Inhaler (Budesonide/Formoterol Fumarate) 10.2 Gm Hfa.aer.ad 2 Puff IH BID 02/17/15 Reported Glimepiride 2 Mg Tablet 1 Tab PO BID 02/17/15 Reported Impression . IMPRESSION: 1. Acute on chronic respiratory failure secondary to acute exacerbation of chronic obstructive pulmonary disease, acute bronchitis, acute diastolic congestive heart failure 2. Abnormal chest x-ray. 3. Acute exacerbation of chronic obstructive pulmonary disease. 4. Acute bronchitis. 5. Morbid obesity, obstructive sleep apnea-hypopnea syndrome, obesity hypoventilation syndrome. 6. Hypertension. 7. Diabetes mellitus. Plan . PT WANTS SPIRIVA UPON D/C WILL NEED A SLEEP STUDY 02 D/C SMOKING ERYN YANES MD Jun 05, 2019 08:49
[2019-06-05] MEDS: INSULIN LISPRO 300 UNITS/3 ML VIAL. SQ SCH (08:52)
--- NOTE | 2019-06-05 10:50 | PDOC ---
PROGRESS NOTES Subjective Subjective feels better want to go home Objective Objective Vital Signs Date Time Temp Pulse Resp B/P (MAP) Pulse Ox O2 Delivery O2 Flow Rate FiO2 06/05/19 08:45 60 158/81 06/05/19 08:00 Nasal Cannula 6.0 06/05/19 07:50 95 06/05/19 07:00 97.8 16 97.8 Intake and Output 06/05/19 07:00 Intake Total 1480 ml Output Total 1550 ml Balance -70 ml Intake Oral 1480 ml Output Urine Total 1550 ml Physical Exam Abdomen: Normal bowel sounds, Soft, Other (colostomy bag) Extremities: No clubbing General: Alert HEENT: Atraumatic Lungs: Other (wheezing ashley decreased) MUSCULOSKELETAL: No deformity Neck: Supple Neuro: Normal speech Psych/Mental Status: Mental status NL Skin: No rashes COMMENT d/nikhil albert Diagnosis Problem List Problems Medical Problems: (1) Acute hypercapnic respiratory failure Status: Acute (2) COPD exacerbation Status: Acute Assessment Assessment Problems Medical Problems: (1) Acute hypercapnic respiratory failure Status: Acute (2) COPD exacerbation Status: Acute FINAL IMPRESSION: 1. Acute hypercapnic acute respiratory failure, requiring BiPAP. 2. CO2 retention with hypoxia. 3. Chronic obstructive pulmonary disease with acute exacerbation. 4. History of sleep apnea. 5. Morbid obesity. 6. Diabetes. 7. Hypertension. 8. Hyperlipidemia. 9. History of colostomy. 10. Smoking addiction. 11. ALLERGIES TO EGG, COULD NOT TAKE FLU AND PNEUMONIA SHOTS. PLAN: ECHO-good LVF diastolic dysfunction 60 % ejf, cxr -chronic lung infiltrates po antibiotics po steroids off bipap on oxygen nasal canula. d/c albert. Home today. Needs out pt sleep study. pt has oxygen at home smoking counseling done. allergic to vaccinations. Plan Plan of Care Problems Medical Problems: (1) Acute hypercapnic respiratory failure Status: Acute (2) COPD exacerbation Status: Acute Comment Review of Relevant I have reviewed the following items leonardo (where applicable) has been applied. Labs Laboratory Tests Test 06/04/19 11:15 06/04/19 16:37 06/04/19 20:54 06/05/19 07:40 Glucose (Fingerstick) 201 mg/dL (70-99) 217 mg/dL (70-99) 257 mg/dL (70-99) 207 mg/dL (70-99) Vitals/I & O Vital Sign - Last 24 Hours 06/04/19 06/04/19 06/04/19 06/04/19 12:04 14:50 16:26 19:15 Temp 97.8 98.3 97.8 98.3 Pulse 61 59 Resp 22 22 B/P (MAP) 137/63 (87) 156/76 (102) Pulse Ox 93 91 95 90 O2 Delivery Nasal Cannula Nasal Cannula Nasal Cannula Nasal Cannula O2 Flow Rate 6.0 6.0 6.0 6.0 06/04/19 06/04/19 06/04/19 06/04/19 19:54 20:00 23:00 23:46 Temp 98.4 98.4 Pulse 56 Resp 22 B/P (MAP) 162/79 (106) Pulse Ox 95 95 99 O2 Delivery Nasal Cannula Nasal Cannula Nasal Cannula BiPAP/CPAP O2 Flow Rate 6.0 6.0 6.0 06/05/19 06/05/19 06/05/19 06/05/19 02:27 03:40 04:13 07:00 Temp 97.4 97.8 97.4 97.8 Pulse 54 60 Resp 22 16 B/P (MAP) 148/87 (107) 158/81 (106) Pulse Ox 94 94 96 96 O2 Delivery BiPAP/CPAP BiPAP/CPAP BiPAP/CPAP Nasal Cannula O2 Flow Rate 6.0 06/05/19 06/05/19 06/05/19 07:50 08:00 08:45 Pulse 60 B/P (MAP) 158/81 Pulse Ox 95 O2 Delivery Nasal Cannula Nasal Cannula O2 Flow Rate 6.0 6.0 Intake and Output 06/04/19 06/04/19 06/05/19 15:00 23:00 07:00 Intake Total 480 ml 600 ml 400 ml Output Total 400 ml 750 ml 400 ml Balance 80 ml -150 ml 0 ml ALBA LOMAS MD Jun 05, 2019 10:50
[2019-06-05 10:57] VITALS: BP 149/74
--- NOTE | 2019-06-05 12:30 | NUR ---
Discharge Note: [facility] Discharge instructions and discharge home medications reviewed with Patient and a copy given. All questions have been answered and understanding verbalized. The following instructions and handouts were given: COPD, respiratory failure, levaquin, and prednisone. Discontinued lines and drains: Peripheral IV intact. Patient discharged to Home or Self Care with Self via Wheelchair
--- NOTE | 2019-06-06 15:19 | PDOC ---
Provider Note Provider Note Discharge summary dictated.#[id number]. ALBA LOMAS MD Jun 06, 2019 15:19
--- NOTE | 2019-06-07 00:04 | DS ---
DATE OF DISCHARGE: 06/05/2019 REASON FOR ADMISSION TO THE HOSPITAL: Acute hypercapnic respiratory failure, chronic COPD. CONSULTATIONS: Dr. Orlando. PROCEDURES DONE: 1. Echocardiogram. 2. Ultrasound of the kidneys. HOSPITAL COURSE: The patient is a 53-year-old female with chronic COPD, chronic oxygen and she came with shortness of breath, confusion, coughing and wheezing, was found to have acute hypercapnic respiratory failure. She had a pH of 7.27, pCO2 76, pO2 of 80, bicarb 34, 95% saturation, FiO2 was 40%. The patient's CBC was normal. Chem profile unremarkable. BNP 1265. Troponin was negative. Urine unremarkable. Influenza A and B was negative. Sputum was normal sean. Had a chest x-ray, mild CHF, atelectasis. Ultrasound of the extremities negative for DVT. The patient was having a lot of bronchospasm and was seen by Pulmonology, was given IV Solu-Medrol, DuoNeb and Levaquin. The patient's condition improved over next couple of days, decreased wheezing. Smoking counseling was done and she was recommended outpatient sleep test. She is on chronic home oxygen. FINAL DIAGNOSES: 1. Acute hypercapnic respiratory failure, requiring BiPAP initially. 2. Chronic obstructive pulmonary disease with hypoxia. 3. Chronic smoking. 4. Possible obstructive sleep apnea. 5. Diabetes. 6. Morbid obesity. 7. History of colostomy. 8. Smoking addiction. The patient was discharged home and was discharged on p.o. prednisone, p.o. antibiotics and DuoNeb. She is on oxygen at home and nebulizer machine at home. She is recommended outpatient sleep study and smoking counseling. THE PATIENT IS ALLERGIC TO EGGS. She cannot take vaccinations for pneumonia or a flu shot. ALBA LOMAS MD DR: LUIS MIGUEL/elena JOB#: [id number] / [id number]
== END 2019-06-05 13:25 | disposition home or self-care (01) | DRG 291 ==
LOC: ER 22:54 → 2 SOUTH 06-02 00:42
PROVIDERS: ADMIT Internal Medicine; ATTEND Internal Medicine
PROC: 5A09457 Assistance with Respiratory Ventilation, 24-96 Consecutive Hours, Continuous Positive Airway Pressure (ICD-10-PCS; principal; 2019-06-02)
DX: I11.0 Hypertensive heart disease with heart failure (principal); J96.21 Acute and chronic respiratory failure with hypoxia; J96.22 Acute and chronic respiratory failure with hypercapnia; J44.0 Chronic obstructive pulmonary disease with (acute) lower respiratory infection; J44.1 Chronic obstructive pulmonary disease with (acute) exacerbation; J98.11 Atelectasis; Z68.42 Body mass index [BMI] 45.0-49.9, adult; I50.33 Acute on chronic diastolic (congestive) heart failure; E78.5 Hyperlipidemia, unspecified; E03.9 Hypothyroidism, unspecified; Z91.19 Patient's noncompliance with other medical treatment and regimen; K57.90 Diverticulosis of intestine, part unspecified, without perforation or abscess without bleeding; F17.200 Nicotine dependence, unspecified, uncomplicated; F32.9 Major depressive disorder, single episode, unspecified; F41.9 Anxiety disorder, unspecified; G47.33 Obstructive sleep apnea (adult) (pediatric); J20.9 Acute bronchitis, unspecified; Z83.3 Family history of diabetes mellitus; Z90.49 Acquired absence of other specified parts of digestive tract; Z91.012 Allergy to eggs; Z93.3 Colostomy status; Z99.81 Dependence on supplemental oxygen
CPT/HCPCS: 36415; 36600; 51702; 71045; 71046; 80048; 80053; 80061; 81001; 82805; 82962; 83036; 83880; 84443; 84484; 85025; 85379; 87070; 87205; 87804; 93005; 93306; 93970; 94640; 94660; 94760; 96374; 96375; J1650; J1815; J1940; J1956; J2060; J2270; J2920; J2930; J7613; J7620; J7626; Q0162; 97116; 99291-25; G0378